=== PATIENT | male | born 1945 | race Caucasian/White ===

== ENCOUNTER 2016-09-19 06:40 | Inpatient (IN) ==
--- NOTE | 2016-09-19 06:58 | Emergency Department Note ---
Disposition Clinical Impression: Influenza A Congestive heart failure Qualifiers: Congestive heart failure type: unspecified congestive heart failure type Congestive heart failure chronicity: unspecified congestive heart failure chronicity Qualified Code(s): I50.9 - Heart failure, unspecified Disposition: Admitted As Inpatient Condition: Fair Instructions: Heart Failure (ED), Influenza (ED) Referrals: Boogie Mcghee DO [Primary Care Provider] - Forms: ED Satisfaction Letter URI/Sore Throat HPI - General Chief Complaint: ED Upper Respiratory Infection Stated Complaint: "I THINK I'VE GOT THE FLU" Source: patient Limitations: no limitations Nursing Notes Reviewed: Yes Vital Signs Reviewed: Yes - History of Present Illness HPI Narrative: Patient is a 71-year-old gentleman brought in by family due to a 4 or 5 day history of not feeling well. Patient stated "I think I had the flu" He recently was placed on a Z-Derick by his primary care provider he is finished that antibiotic and not feeling much better. He states he is coughing up clear phlegm he also believes he is retaining water. He does have a history of congestive heart failure. He is not a smoker. He states he quit tobacco 3 years ago. Pt Subjective Complaint: fever, cough, flu symptoms Onset (ago): day(s) Duration: constant - Related Data Home Medications Medication Instructions Recorded Confirmed Acetaminophen [Non-Aspirin] 325 mg PO Q6HR PRN 09/19/16 09/19/16 Aspirin [Lo-Dose Aspirin EC] 81 mg PO QDPC 09/19/16 09/19/16 Atorvastatin [Lipitor] 40 mg PO QDPC 09/19/16 09/19/16 Carvedilol [Coreg] 25 mg PO BID 09/19/16 09/19/16 Fluticasone Propionate Nasal 16 gm NS QDPC 09/19/16 09/19/16 [Flonase] Furosemide [Lasix] 20 mg PO QDPC 09/19/16 09/19/16 Lisinopril [Zestril] 5 mg PO DAILY 09/19/16 09/19/16 Tizanidine HCl [Zanaflex] 4 mg PO TID PRN 09/19/16 09/19/16 Allergies Allergy/AdvReac Type Severity Reaction Status Date / Time No Known Allergies Allergy Verified 09/19/16 07:03 All systems ED: reviewed and negative except as stated. URI PMH - Past Medical History Medical history: Reports: CHF, hyperlipidemia, hypertension, renal disease Psychiatric history: Reports: no psych history - Social History Smoking Status: Former smoker Alcohol use: Reports: none Drug use: Reports: none Physical Exam Loquacious - General Limitations: no limitations General appearance: alert - Head Head exam: atraumatic - Eye Eye exam: Present: normal appearance - ENT ENT exam: normal exam - Neck Neck exam: Present: normal inspection - Chest Chest inspection: Present: normal inspection - Respiratory Respiratory exam: Present: other (Diminished breath sounds, does not appear dyspneic) - Cardiovascular Cardiovascular exam: Present: regular rate, normal rhythm - Abdominal Exam Abdominal exam: Present: soft, distention - Expanded Lower Extremity Exam Lower leg exam: Present: swelling - Back Exam Back exam: Present: normal inspection - Neurological Exam Neurological exam: Present: alert, oriented X3, CN II-XII intact - Psychiatric Psychiatric exam: Present: normal affect - Skin Skin exam: Present: warm, dry Course Course Narrative: Condition on 2 L per nasal is presently 95% recheck on blood pressure now 148/ 97. Vital Signs Temperature 97.6 F 09/19/16 06:42 Pulse Rate 70 09/19/16 06:42 Respiratory Rate 20 09/19/16 06:42 Blood Pressure 213/114 09/19/16 06:42 O2 Sat by Pulse Oximetry 90 L 09/19/16 06:42 Temperature 97.6 F 09/19/16 07:31 Pulse Rate 71 09/19/16 07:31 Respiratory Rate 24 09/19/16 07:31 Blood Pressure 148/97 09/19/16 07:31 O2 Sat by Pulse Oximetry 95 09/19/16 07:31 Oxygen Delivery Oxygen Delivery Nasal Cannula Upper Respiratory Infection - MDM Narrative Medical decision making narrative: Differential: Respiratory distress versus influenza versus congestive heart failure versus cardiac event - Lab Data Lab results reviewed: Yes I reviewed the patient's lab results. Result diagrams: 09/19/16 07:20 Lab Results 09/19/16 09/19/16 09/19/16 Range/Units 07:20 07:20 07:31 WBC 8.2 (4.3-11.1) K/mcL RBC 5.06 (4.19-5.50) M/mcL Hgb 15.2 (12.9-16.9) g/dL Hct 45.0 (37.5-50.1) % MCV 88.9 (83.0-100.0) fL MCH 30.0 (28.0-33.3) pg MCHC 33.8 (31.6-35.5) g/dL RDW 12.1 (11.5-14.5) % Plt Count 156 (140-400) K/mcL MPV 11.4 (9.4-12.4) fL Immature Gran % 0.2 (0-4) % Seg Neutrophils % 82.1 % Lymphocytes % 10.9 % Monocytes % 6.5 % Eosinophils % 0.1 % Basophils % 0.2 % Neutrophils # 6.7 (1.6-8.9) K/mcL Lymphocytes # 0.9 (0.6-4.6) K/mcL Monocytes # 0.5 (0.0-1.3) K/mcL Eosinophils # 0.0 (0.0-0.6) K/mcL Basophils # 0.0 (0.0-0.2) K/mcL PT 12.7 H (9.4-12.1) Seconds INR 1.2 ABG pH 7.33 (7.32-7.45) pH Units ABG pCO2 62 H (35-45) mmHg ABG pO2 76 L (85-104) mmHg ABG HCO3 32.7 H (21-27) mEQ/L ABG Total CO2 93.6 H (20-26) mEq/L ABG O2 Saturation 94 L (95-98) % ABG Base Excess 4.6 H (-2.0 to 3.0) mEq/L Liter Flow 2 L/MIN Blood Gas Modality NC Inspired O2 28 % - Radiology Data Radiology results reviewed: Yes I reviewed the patient's radiology results. ITS Impressions Chest X-Ray 09/19/16 06:58 IMPRESSION: No acute cardiopulmonary process. D/ / Lana Santoyo MD / Lana Santoyo MD Interpreting Provider: Lana Santoyo MD - EKG Data EKG attestation: Yes I reviewed and interpreted this EKG. EKG shows normal: sinus rhythm Rate: normal Rhythm: NSR
[2016-09-19] MEDS ORDERED: Furosemide 40 MG/4 ML VIAL IVP STA (07:03)
[2016-09-19 07:32] LABS: Basophils % 0.2 %; Eosinophils % 0.1 %; Hemoglobin 15.2 g/dL (12.9-16.9); Immature Granulocytes % 0.2 % (0-4); Lymphocytes # 0.9 K/mcL (0.6-4.6); Lymphocytes % 10.9 %; Mean Corpuscular HGB Conc 33.8 g/dL (31.6-35.5); Mean Corpuscular Volume 88.9 fL (83.0-100.0); Mean Platelet Volume 11.4 fL (9.4-12.4); Monocytes # 0.5 K/mcL (0.0-1.3); Monocytes % 6.5 %; Neutrophils # 6.7 K/mcL (1.6-8.9); Platelet Count 156 K/mcL (140-400); Red Blood Count 5.06 M/mcL (4.19-5.50); Red Cell Distribution Width 12.1 % (11.5-14.5); Segmented Neutrophils % 82.1 %
[2016-09-19 07:38] LABS: INR 1.2; Prothrombin Time 12.7 Seconds (9.4-12.1)
[2016-09-19 07:40] LABS: ABG Base Excess 4.6 mEq/L (-2.0 to 3.0); ABG HCO3 32.7 mEQ/L (21-27); ABG Oxygen Saturation 94 % (95-98); ABG PCO2 62 mmHg (35-45); ABG PH 7.33 pH Units (7.32-7.45); ABG PO2 76 mmHg (85-104); ABG TCO2 93.6 mEq/L (20-26); Blood Gas FiO2 28 %; Blood Gas Liter Flow 2 L/MIN
[2016-09-19 07:50] LABS: Alanine Aminotransferase 19 Units/L (0-55); Albumin 3.3 g/dL (3.5-5.0); Albumin/Globulin Ratio 0.9 (1.1-2.2); Alkaline Phosphatase 64 Units/L (38-126); Aspartate Amino Transferase 15 Units/L (5-34); BUN/Creatinine Ratio 18 (6-26); Bilirubin,Total 1.1 mg/dL (0.2-1.2); Blood Urea Nitrogen 19 mg/dL (8-26); Calcium 8.7 mg/dL (8.6-10.8); Carbon Dioxide 29 mEq/L (19-29); Chloride 96 mEq/L (98-109); Globulin 3.8 g/dL (2.4-3.5); Glucose 196 mg/dL (70-99); Osmolality,Calculated 294 (280-300); Potassium 3.6 mEq/L (3.5-4.5); Sodium 138 mEq/L (136-145); Total Protein 7.1 g/dL (6.0-8.3); eGFR For African Americans > 60 (> 60); eGFR For Non-African Americans > 60 (> 60)
[2016-09-19 08:03] LABS: Bilirubin,Urine Negative (Negative); Blood,Urine Trace-lysed (Negative); Clarity,Urine Clear (Clear); Color,Urine Yellow (Yellow); Glucose,Urine (UA) Normal (Normal); Ketones,Urine Negative (Negative); Leukocyte Esterase,Urine Negative (Negative); Nitrite,Urine Negative (Negative); PH,Urine 5.5 pH Units (5.0-8.0); Protein,Urine 100 mg/dL (Neg-Trace); Urobilinogen,Urine Normal (Normal)
[2016-09-19 08:24] LABS: Hyaline Casts,Urine Few per lpf (None-Few); RBC,Urine 0-3 per hpf (0-3); Squamous Epithelial Cell,Urine Few per lpf (None-Few); WBC,Urine 0-3 per hpf (0-3)
[2016-09-19] MEDS ORDERED: Furosemide 20 MG TABLET PO SCH (09:07)
[2016-09-19] MEDS ORDERED: Acetaminophen 325 MG TABLET PO PRN (09:07)
[2016-09-19] MEDS: Aspirin Enteric Coated 81 MG Tablet PO SCH (12:51)
[2016-09-19] MEDS: Fluticasone Propionate Nasal 50 MCG/SPRAY BOTTLE NS SCH (12:52)
--- NOTE | 2016-09-19 14:10 | Internal Med History&Physical ---
Date of Encounter: 09/19/16 Time of Encounter: 13:35 Assessment and Plan (1) Influenza A Current visit: Yes Status: Acute He has been started on Tamiflu. I will add Robitussin DM (2) DM type 2 (diabetes mellitus, type 2) Current visit: Yes Status: Chronic We will check hemoglobin A1c in a.m. Qualifiers: Diabetes mellitus complication status: with kidney complications Diabetes mellitus complication detail: with chronic kidney disease Diabetes mellitus prison insulin use: without manager long term care use Chronic kidney disease stage: stage 2 (mild) Qualified Code(s): E11.22 - Type 2 diabetes mellitus with diabetic chronic kidney disease; N18.2 - Chronic kidney disease, stage 2 (mild) (3) Hyperuricemia Current visit: Yes Status: Acute We will check uric acid level in a.m. (4) Congestive heart failure Current visit: Yes Status: Acute We will continue with Lasix and Coreg at present doses. Will increase Zestril and add Lanoxin Qualifiers: Congestive heart failure type: unspecified congestive heart failure type Congestive heart failure chronicity: unspecified congestive heart failure chronicity Qualified Code(s): I50.9 - Heart failure, unspecified (5) Hypertension Current visit: Yes Status: Chronic Continue Coreg and Lasix. Increase Zestril as per above. Qualifiers: Hypertension type: essential hypertension Qualified Code(s): I10 - Essential (primary) hypertension Internal Medicine - H&P: HPI Chief complaint: Cough and dyspnea Admitted From: Home Plans for Post Hospital Care: Home History of present illness: Mr. Arredondo is a 71 year old male who came to emergency room stating he had onset of cough and dyspnea approximately 3-4 days earlier. He had called his PCP Dr. Mcghee and received a Z-Derick prescription. After 2 days of Z-Derick he did not feel he was improved so came to emergency room. He was evaluated and found to have influenza A. He was admitted to [facility] floor for ongoing care needs. He states he did not take a flu shot last fall because he previously has has "gotten the flu from taking the shot". His respiratory history is significant for having smoked from age [age] a combination of cigars and cigarettes. He denies documented chronic lung disease and does not use home oxygen. Past Med Surg Social Fam HX - Past Medical History Medical history: CHF, hyperlipidemia, hypertension, renal disease Psychiatric history: no psych history - Social History Smoking Status: Former smoker Smokeless Tobacco Status: No Alcohol use: none Drug use: none Internal Medicine - H&P: Meds Acetaminophen [Non-Aspirin] 325 mg PO Q6HR PRN 09/19/16 [History] Aspirin [Lo-Dose Aspirin EC] 81 mg PO QDPC 09/19/16 [History] Atorvastatin [Lipitor] 40 mg PO QDPC 09/19/16 [History] Carvedilol [Coreg] 25 mg PO BID 09/19/16 [History] Fluticasone Propionate Nasal [Flonase] 16 gm NS QDPC 09/19/16 [History] Furosemide [Lasix] 20 mg PO QDPC 09/19/16 [History] Lisinopril [Zestril] 5 mg PO DAILY 09/19/16 [History] Tizanidine HCl [Zanaflex] 4 mg PO TID PRN 09/19/16 [History] Allergies No Known Allergies Allergy (Verified 09/19/16 07:03) All Systems PM: A 10-system review of systems was performed and is negative for pertinent findings except as documented above in the HPI. Review of systems: Gen.: He states his weight has fluctuated significantly in the past year based on fluid retention Cardiovascular: Has history of hypertension and a diagnosis of CHF. An echocardiogram was done 01/12/2015 and showed LVEF of 15% with severe LV systolic dysfunction and indeterminant diastolic function. There was elevated RVSP estimated at 60-65 mmHg. Left atrial measurement was enlarged at 4.8 cm. The right atrium was reported enlarged without measurement given. The interventricular septum and posterior wall thickness measurements were elevated at 1.1 and 1.2 cm respectively. He denies chest pain DVT or pulmonary embolus Respiratory: As per history of present illness GI: Denies disorders of his liver gallbladder or exocrine pancreas : He has chronic kidney disease but does not follow regularly with a school speech language pathologist. Denies other kidney bladder or prostate disorders Neurologic: He denies large distribution strokes or seizures. Endocrine: He states he is "borderline diabetic". The most recent hemoglobin A1c in lab archives was 6.6% on 01/12/2015. He takes Lipitor but is uncertain if he has hyperlipidemia. He denies thyroid disease Hematology/oncology: He denies blood disorders cancers or anemia Psychiatric: He has PTSD but denies anxiety or depression or other mental health issues Musculoskeletal: He has DJD but denies gout or other bone joint or muscle disorders. His most recent uric acid level was elevated on 04/16/2015 at 9.3. - Constitutional Vitals: Temp Pulse Resp BP Pulse Ox 98.3 F 72 22 144/87 96 09/19/16 10:55 09/19/16 10:55 09/19/16 10:55 09/19/16 10:55 09/19/16 11:03 Exam: Gen.: He is a well-developed well-nourished male lying quietly in bed in no acute distress HEENT: Head is atraumatic and normocephalic. Eyes: EOMI. There is no scleral icterus. Mouth: Mucosa is moist. Neck: Supple and nontender. There is no thyromegaly or adenopathy noted. Heart: Regular without murmurs gallops or ectopics. Lungs: No wheezes or crackles are heard. Abdomen: He has a distended abdomen which is tympanitic to percussion. No masses or guarding noted. Extremities: He has 1-2+ edema of the dorsum of feet and lower anterior shins bilaterally. Dorsalis pedis and posttibial pulses are nonpalpable. Neurologic: Mental status: He is talkative and a good historian. Cranial nerves : Smile is symmetric. Forehead wrinkles bilaterally. Tongue protrudes midline. EOMI. Motor: There is no pronator drift. Cerebellar: Finger to nose is intact bilaterally. Skin: Warm and dry Internal Med - H&P Results - Labs CBC & Chem 7: 09/19/16 07:20 09/19/16 07:20
--- NOTE | 2016-09-19 14:52 | Electrocardiograph Report ---
[address] [place], [place] [address] Test Date: 2016-09-19 Pat Name: Familia Arredondo Department: [id number] Room: [facility] Gender: M Business Change Manager: : 1945 Requested By: Order Number: [id number] Reading MD: Payton Ortiz Measurements Intervals Duff Rate: 69 P: 69 LA: 158 QRS: 20 QRSD: 104 T: 61 QT: 413 QTc: 433 Interpretive Statements SINUS RHYTHM NONSPECIFIC ST DEPRESSION Electronically Signed On 09-19-2016 14:50:29 EST by Payton Ortiz
[2016-09-19] MEDS: Furosemide 40 MG TABLET PO SCH (16:36)
[2016-09-19] MEDS: *HR* Digoxin 0.25 MG TABLET PO SCH (16:36)
[2016-09-20 02:36] LABS: ABG PH 7.31 pH Units (7.32-7.45)
[2016-09-20 02:38] LABS: ABG Base Excess 9.7 mEq/L (-2.0 to 3.0); ABG HCO3 35.9 mEQ/L (21-27); ABG Oxygen Saturation 84 % (95-98); ABG PCO2 71 mmHg (35-45); ABG PO2 56 mmHg (85-104); ABG TCO2 38.1 mEq/L (20-26)
[2016-09-20] MEDS ORDERED: Furosemide 20 MG TABLET PO SCH (09:00)
[2016-09-20] MEDS: Fluticasone Propionate Nasal 50 MCG/SPRAY BOTTLE NS SCH (09:34)
[2016-09-20] MEDS: Aspirin Enteric Coated 81 MG Tablet PO SCH (09:35)
[2016-09-20] MEDS: *HR* Digoxin 0.25 MG TABLET PO SCH (09:35)
[2016-09-20] MEDS: Furosemide 40 MG TABLET PO SCH (09:35)
--- NOTE | 2016-09-20 12:22 | Internal Med Progress Note ---
Date of Encounter: 09/20/16 Time of Encounter: 12:15 - Assessment and plan (1) Influenza A Current Visit: Yes Status: Acute Assessment and plan: September 20. Continue Tamiflu and Robitussin-DM (2) DM type 2 (diabetes mellitus, type 2) Current Visit: Yes Status: Chronic Assessment and plan: September 20. We will check hemoglobin A1c in a.m. Qualifiers: Diabetes mellitus complication status: with kidney complications Diabetes mellitus complication detail: with chronic kidney disease Diabetes mellitus skilled nursing insulin use: without skilled nursing use Chronic kidney disease stage: stage 2 (mild) Qualified Code(s): E11.22 - Type 2 diabetes mellitus with diabetic chronic kidney disease; N18.2 - Chronic kidney disease, stage 2 (mild) (3) Hyperuricemia Current Visit: Yes Status: Acute Assessment and plan: September 20. We will check uric acid level in a.m. (4) Congestive heart failure Current Visit: Yes Status: Acute Assessment and plan: September 20. Continue Lasix, Coreg, Lanoxin, and higher dose lisinopril. Qualifiers: Congestive heart failure type: unspecified congestive heart failure type Congestive heart failure chronicity: unspecified congestive heart failure chronicity Qualified Code(s): I50.9 - Heart failure, unspecified (5) Hypertension Current Visit: Yes Status: Chronic Assessment and plan: September 20. Continue Coreg, Lasix, and higher dose lisinopril Qualifiers: Hypertension type: essential hypertension Qualified Code(s): I10 - Essential (primary) hypertension - Subjective Interval history: September 20. He has no new complaints and feels better overall. He had dyspnea in the rounder and backer hours with a blood gas showing minimal worsening of his ventilation. He was ordered BiPAP but is presently wearing oxygen by nasal cannula. - Constitutional Vitals: Temp Pulse Resp BP Pulse Ox 98.8 F 73 18 127/73 91 L 09/20/16 10:33 09/20/16 10:33 09/20/16 10:33 09/20/16 10:33 09/20/16 10:33 Exam: He is not dyspneic. He is very alert and talkative and appropriate in conversation. His extremities showed decreased edema. I reviewed his medications and lab results. Internal Medicine: Result - Labs CBC & Chem 7: 09/19/16 07:20 09/19/16 07:20 - ABG Interpretation ABG results: ABG ABG pH 7.31 pH Units (7.32-7.45) L 09/20/16 02:27 ABG pCO2 71 mmHg (35-45) H* 09/20/16 02:27 ABG pO2 56 mmHg (85-104) L 09/20/16 02:27 ABG O2 Saturation 84 % (95-98) L 09/20/16 02:27 PT/INR, D-dimer PT 12.7 Seconds (9.4-12.1) H 09/19/16 07:20 Consult Discharge Plan - Plan Instructions: Heart Failure (ED), Influenza (ED)
[2016-09-20] MEDS: *HR* Enoxaparin 40 MG/0.4 ML SYRINGE SQ SCH (17:33)
[2016-09-21] MEDS: *HR* Enoxaparin 40 MG/0.4 ML SYRINGE SQ SCH (05:32)
[2016-09-21 06:54] LABS: Hematocrit 46.1 % (37.5-50.1); Hemoglobin 14.9 g/dL (12.9-16.9); Lymphocytes # 1.5 K/mcL (0.6-4.6); Mean Corpuscular HGB Conc 32.3 g/dL (31.6-35.5); Mean Corpuscular Hemoglobin 29.3 pg (28.0-33.3); Mean Corpuscular Volume 90.7 fL (83.0-100.0); Mean Platelet Volume 10.9 fL (9.4-12.4); Platelet Count 177 K/mcL (140-400); Red Blood Count 5.08 M/mcL (4.19-5.50)
[2016-09-21 07:07] LABS: BUN/Creatinine Ratio 26 (6-26); Blood Urea Nitrogen 35 mg/dL (8-26); Calcium 8.7 mg/dL (8.6-10.8); Carbon Dioxide 34 mEq/L (19-29); Chloride 95 mEq/L (98-109); Glucose 126 mg/dL (70-99); Osmolality,Calculated 302 (280-300); Sodium 141 mEq/L (136-145); eGFR For African Americans > 60 (> 60); eGFR For Non-African Americans 53 (> 60)
[2016-09-21 07:43] LABS: Monocytes # 0.9 K/mcL (0.0-1.3); Neutrophils # 6.1 K/mcL (1.6-8.9)
[2016-09-21 07:45] LABS: Platelet Estimate Normal (Normal)
[2016-09-21 08:00] LABS: ABG PH 7.33 pH Units (7.32-7.45)
[2016-09-21 08:01] LABS: ABG Base Excess 11.4 mEq/L (-2.0 to 3.0); ABG HCO3 37.4 mEQ/L (21-27); ABG PCO2 72 mmHg (35-45); ABG PO2 76 mmHg (85-104); ABG TCO2 39.6 mEq/L (20-26)
[2016-09-21 08:02] LABS: ABG Oxygen Saturation 93 % (95-98); Blood Gas BiPAP(E) 6 cm H2O; Blood Gas BiPAP(I) 16 cm H2O; Blood Gas FiO2 40 %; Blood Gas Respiration Rate 16
[2016-09-21 08:33] LABS: Hemoglobin A1C 6.2 %
[2016-09-21] MEDS: Aspirin Enteric Coated 81 MG Tablet PO SCH (09:03)
[2016-09-21] MEDS: *HR* Digoxin 0.25 MG TABLET PO SCH (09:04)
[2016-09-21] MEDS: Furosemide 40 MG TABLET PO SCH (09:04)
[2016-09-21] MEDS: Fluticasone Propionate Nasal 50 MCG/SPRAY BOTTLE NS SCH (09:04)
--- NOTE | 2016-09-21 10:05 | Internal Med Progress Note ---
Date of Encounter: 09/21/16 Time of Encounter: 09:50 - Assessment and plan (1) Influenza A Current Visit: Yes Status: Acute Assessment and plan: September 20. Continue Tamiflu and Robitussin-DM (2) DM type 2 (diabetes mellitus, type 2) Current Visit: Yes Status: Chronic Assessment and plan: September 20. We will check hemoglobin A1c in a.m. September 21. Hemoglobin A1c is acceptable at 6.2%. Qualifiers: Diabetes mellitus complication status: with kidney complications Diabetes mellitus complication detail: with chronic kidney disease Diabetes mellitus halfway insulin use: without halfway use Chronic kidney disease stage: stage 2 (mild) Qualified Code(s): E11.22 - Type 2 diabetes mellitus with diabetic chronic kidney disease; N18.2 - Chronic kidney disease, stage 2 (mild) (3) Hyperuricemia Current Visit: Yes Status: Acute Assessment and plan: September 20. We will check uric acid level in a.m. September 21. Uric acid level is acceptable at 7.0. It is improved from 9.3 on 04/16/2015. (4) Congestive heart failure Current Visit: Yes Status: Acute Assessment and plan: September 20. Continue Lasix, Coreg, Lanoxin, and higher dose lisinopril. September 21. Bn-peptide has normalized at 58. Azotemia has worsened with BUN 35 and creatinine 1.34. Will add isosorbide. Continue Coreg, lisinopril, Lanoxin and Lasix. Check labs in a.m. Qualifiers: Congestive heart failure type: unspecified congestive heart failure type Congestive heart failure chronicity: unspecified congestive heart failure chronicity Qualified Code(s): I50.9 - Heart failure, unspecified (5) Hypertension Current Visit: Yes Status: Chronic Assessment and plan: September 20. Continue Coreg, Lasix, and higher dose lisinopril Qualifiers: Hypertension type: essential hypertension Qualified Code(s): I10 - Essential (primary) hypertension - Subjective Interval history: September 20. He has no new complaints and feels better overall. He had dyspnea in the pie maker machine hours with a blood gas showing minimal worsening of his ventilation. He was ordered BiPAP but is presently wearing oxygen by nasal cannula. September 21. He has no new complaints. He still feels weak and does not think he is ready for discharge. - Constitutional Vitals: Temp Pulse Resp BP Pulse Ox 97.8 F 71 20 149/96 94 L 09/21/16 07:31 09/21/16 07:31 09/21/16 07:31 09/21/16 07:31 09/21/16 07:31 Exam: He is lying in bed resting comfortably. I reviewed his weights showing a 4 pound weight decrease since admission. He is not dyspneic on talking. His affect is bright and cheerful. I reviewed his medications and lab results. Internal Medicine: Result - Labs CBC & Chem 7: 09/21/16 06:40 09/21/16 06:40 Labs: Short CBC 09/21/16 Range/Units 06:40 WBC 8.5 (4.3-11.1) K/mcL Hgb 14.9 (12.9-16.9) g/dL Hct 46.1 (37.5-50.1) % Plt Count 177 (140-400) K/mcL Neutrophils # 6.1 (1.6-8.9) K/mcL BMP 09/21/16 06:40 Sodium 141 Potassium 4.0 Chloride 95 L Carbon Dioxide 34 H BUN 35 H D Creatinine 1.34 H Glucose 126 H Calcium 8.7 - ABG Interpretation ABG results: ABG ABG pH 7.33 pH Units (7.32-7.45) 09/21/16 08:00 ABG pCO2 72 mmHg (35-45) H* 09/21/16 08:00 ABG pO2 76 mmHg (85-104) L 09/21/16 08:00 ABG O2 Saturation 93 % (95-98) L 09/21/16 08:00 PT/INR, D-dimer PT 12.7 Seconds (9.4-12.1) H 09/19/16 07:20 Consult Discharge Plan - Plan Instructions: Heart Failure (ED), Influenza (ED) Referrals: Boogie Mcghee DO [Primary Care Provider] - 1 week
[2016-09-21] MEDS: Isosorbide MONOnitrate (24 HR) 30 MG TAB.ER.24H PO SCH (12:12)
[2016-09-21 19:07] LABS: Blood Gas FiO2 28 %; Blood Gas Liter Flow 2 L/MIN
[2016-09-22 05:50] LABS: BUN/Creatinine Ratio 27 (6-26); Blood Urea Nitrogen 35 mg/dL (8-26); Calcium 8.5 mg/dL (8.6-10.8); Carbon Dioxide 29 mEq/L (19-29); Chloride 98 mEq/L (98-109); Glucose 124 mg/dL (70-99); Magnesium 2.6 mg/dL (1.6-2.6); Osmolality,Calculated 297 (280-300); Potassium 4.3 mEq/L (3.5-4.5); Sodium 139 mEq/L (136-145); eGFR For African Americans > 60 (> 60); eGFR For Non-African Americans 54 (> 60)
[2016-09-22 05:57] LABS: Digoxin 0.5 ng/mL (0.8-2.0)
[2016-09-22] MEDS: *HR* Enoxaparin 40 MG/0.4 ML SYRINGE SQ SCH (06:49)
[2016-09-22 07:44] VITALS: BP 156/78
[2016-09-22] MEDS: Aspirin Enteric Coated 81 MG Tablet PO SCH (09:25)
[2016-09-22] MEDS: Isosorbide MONOnitrate (24 HR) 30 MG TAB.ER.24H PO SCH (09:25)
[2016-09-22] MEDS: *HR* Digoxin 0.25 MG TABLET PO SCH (09:25)
[2016-09-22] MEDS: Fluticasone Propionate Nasal 50 MCG/SPRAY BOTTLE NS SCH (09:26)
[2016-09-22] MEDS: Furosemide 40 MG TABLET PO SCH (09:26)
--- NOTE | 2016-09-22 09:59 | Discharge Summary ---
Date of Encounter: 09/22/16 Time of Encounter: 09:45 - Discharge Diagnosis (1) Influenza A Priority: Primary Status: Acute (2) Hypoxemia Priority: Secondary Status: Acute (3) DM type 2 (diabetes mellitus, type 2) Priority: Secondary Status: Chronic Qualifiers: Diabetes mellitus complication status: with kidney complications Diabetes mellitus complication detail: with chronic kidney disease Diabetes mellitus group home insulin use: without group home use Chronic kidney disease stage: stage 2 (mild) Qualified Code(s): E11.22 - Type 2 diabetes mellitus with diabetic chronic kidney disease; N18.2 - Chronic kidney disease, stage 2 (mild) (4) Hyperuricemia Priority: Secondary Status: Acute (5) Congestive heart failure Priority: Secondary Status: Chronic Qualifiers: Congestive heart failure type: systolic Congestive heart failure chronicity : unspecified congestive heart failure chronicity Qualified Code(s): I50.20 - Unspecified systolic (congestive) heart failure (6) Hypertension Priority: Secondary Status: Chronic Qualifiers: Hypertension type: essential hypertension Qualified Code(s): I10 - Essential (primary) hypertension - Discharge Medications Prescriptions: Digoxin [Lanoxin] 0.125 mg PO DAILY #30 tablet Furosemide [Lasix] 40 mg PO QDPC #60 tablet Isosorbide MONOnitrate (24 HR) [Imdur] 30 mg PO DAILY #30 tab.er.24h Lisinopril [Zestril] 10 mg PO DAILY #30 tablet Oseltamivir [Tamiflu] 75 mg PO BID #4 capsule Home Medications: Acetaminophen [Non-Aspirin] 325 mg PO Q6HR PRN 09/19/16 [History] Aspirin [Lo-Dose Aspirin EC] 81 mg PO QDPC 09/19/16 [History] Atorvastatin [Lipitor] 40 mg PO QDPC 09/19/16 [History] Carvedilol [Coreg] 25 mg PO BID 09/19/16 [History] Fluticasone Propionate Nasal [Flonase] 16 gm NS QDPC 09/19/16 [History] Tizanidine HCl [Zanaflex] 4 mg PO TID PRN 09/19/16 [History] Digoxin [Lanoxin] 0.125 mg PO DAILY #30 tablet 09/22/16 [Rx] Furosemide [Lasix] 40 mg PO QDPC #60 tablet 09/22/16 [Rx] Isosorbide MONOnitrate (24 HR) [Imdur] 30 mg PO DAILY #30 tab.er.24h 09/22/16 [ Rx] Lisinopril [Zestril] 10 mg PO DAILY #30 tablet 09/22/16 [Rx] Oseltamivir [Tamiflu] 75 mg PO BID #4 capsule 09/22/16 [Rx] Allergies/Adverse Reactions: Allergies lorazepam [From Ativan] Adverse Reaction (Verified 09/19/16 17:05) Agitated confusion, pulls out IVs Date of admission: 09/20/16 12:24 Primary care physician: Boogie Mcghee DO Consults: 09/21/16 10:10 Consult to Occupational Therapy [CONS] Routine Comment: Evaluate, develop and implement POC Consult to Physical Therapy [CONS] Routine Comment: Evaluate, develop and implement POC - Patient Status Disposition: Home Health Service Condition: Fair Overall status at discharge: patient is progressing back to baseline - Discharge Instructions Instructions: Heart Failure (ED), Influenza (ED) Follow Up With: Boogie Mcghee DO [Primary Care Provider] - 1 week - Diet and Activity Activity: resume usual activities as tolerated, wear oxygen at all times Diet: advance to your usual diet Hospital course: Mr. Arredondo is a 71 year old male who came to emergency room stating he had onset of cough and dyspnea approximately 3-4 days earlier. He had called his PCP Dr. Mcghee and received a Z-Derick prescription. After 2 days of Z-Derick he did not feel he was improved so came to emergency room. He was evaluated and found to have influenza A. He was admitted to [facility] floor for ongoing care needs. Initial orders were written by the emergency room physician. I saw him on September 19 and performed the history and physical. He was started on Tamiflu for influenza A. I added Robitussin-DM. He remained afebrile during his hospital stay. He will continue on Tamiflu at discharge to complete a 5 day course. Hemoglobin A1c returned acceptable at 6.2%. Uric acid level returned at 7.0 which is improved from 9.3 on 04/16/2015. He was started on higher dose Lasix and lisinopril. Isosorbide and Lanoxin were added. His BNP peptide normalized at 58 on September 21. He will continue this regimen upon discharge. Room air oximetry showed saturation of 82% while at rest. The patient experienced dyspnea and required immediate reinstitution of the oxygen. He will be discharged on oxygen at 2 L/m by nasal cannula 28/02 with portable gas and concentrator. On September 22 he felt stable for discharge home. He will follow with Dr. Mcghee within 1 week. Home health services will be arranged. - Time Spent with Patient Total time spent providing and/or coordinating discharge services: - Constitutional Vitals: Temp Pulse Resp BP Pulse Ox 98.8 F 73 18 156/78 82 L 09/22/16 07:00 09/22/16 07:00 09/22/16 07:00 09/22/16 07:00 09/22/16 07:40
--- NOTE | 2016-09-22 10:11 | Physician Discharge Referral ---
Home Health/Hosp Referral Info Transfer to: Home Health Attending Provider: Florentin Provider in Charge Post Discharge: PCP (Litzy) - Diagnosis (1) Influenza A Priority: Primary Status: Acute (2) Hypoxemia Priority: Secondary Status: Acute (3) DM type 2 (diabetes mellitus, type 2) Priority: Secondary Status: Chronic (4) Hyperuricemia Priority: Secondary Status: Acute (5) Congestive heart failure Priority: Secondary Status: Chronic (6) Hypertension Priority: Secondary Status: Chronic - Respiratory Orders Oxygen / L per min (2 l/min by ms 28/02) Smoking Cessation: Smoking cessation has been advised. For more information, call the [place] Tobacco Quit Line at 0-122-NLED-NOW. - Diet/Nutrition Diet/Nutrition Orders: No Added Salt (GUTIERREZ) - Activity Activity Orders: Ambulate - Services Needed Following services are medically necessary services: Nursing, Home Health Aide, Physical Therapy, Occupational Therapy - Transfer Medications Prescriptions: Digoxin [Lanoxin] 0.125 mg PO DAILY #30 tablet Furosemide [Lasix] 40 mg PO QDPC #60 tablet Isosorbide MONOnitrate (24 HR) [Imdur] 30 mg PO DAILY #30 tab.er.24h Lisinopril [Zestril] 10 mg PO DAILY #30 tablet Oseltamivir [Tamiflu] 75 mg PO BID #4 capsule Home Medications: Acetaminophen [Non-Aspirin] 325 mg PO Q6HR PRN 09/19/16 [History] Aspirin [Lo-Dose Aspirin EC] 81 mg PO QDPC 09/19/16 [History] Atorvastatin [Lipitor] 40 mg PO QDPC 09/19/16 [History] Carvedilol [Coreg] 25 mg PO BID 09/19/16 [History] Fluticasone Propionate Nasal [Flonase] 16 gm NS QDPC 09/19/16 [History] Tizanidine HCl [Zanaflex] 4 mg PO TID PRN 09/19/16 [History] Digoxin [Lanoxin] 0.125 mg PO DAILY #30 tablet 09/22/16 [Rx] Furosemide [Lasix] 40 mg PO QDPC #60 tablet 09/22/16 [Rx] Isosorbide MONOnitrate (24 HR) [Imdur] 30 mg PO DAILY #30 tab.er.24h 09/22/16 [ Rx] Lisinopril [Zestril] 10 mg PO DAILY #30 tablet 09/22/16 [Rx] Oseltamivir [Tamiflu] 75 mg PO BID #4 capsule 09/22/16 [Rx] Allergies/Adverse Reactions: Allergies lorazepam [From Ativan] Adverse Reaction (Verified 09/19/16 17:05) Agitated confusion, pulls out IVs Certification: Further, I certify that my clinical findings support that this patient is homebound (i.e. absences from home require considerable and taxing effort and are for medical reasons or restoration services or infrequently or short duration when for other reasons) because: Homebound Reason: Leaving home requires considerable and taxing effort due to condition (COPD with hypoxemia, deconditioning) Attestation: My signature below is to certify that this patient is under my care and that I, or nurse practitioner, or a physician's assistant manager trainee working with me, has a face-to -face encounter with this patient.
== END 2016-09-22 14:00 | disposition home health service (06) | DRG 194 ==
LOC: EMEROOPIK 06:40 → INPPIK 06:40
PROVIDERS: ADMIT Internal Medicine; ATTEND Internal Medicine